=== PATIENT | male | born 1975 | race Two or more races ===

== ENCOUNTER 2022-04-06 21:35 | Emergency (ER) | payer SELFPAY ==
[~2022-04-06] VITALS: Ht 188 cm; Wt 98.5 kg
[2022-04-06] MEDS ORDERED: HYDR-4902 PO (23:44)
[2022-04-06] MEDS ORDERED: HYDROcodone-ACET 5/325MG TAB PO ONE (23:45)
[2022-04-07 00:20] VITALS: BP 146/88
== END 2022-04-07 00:35 | disposition home or self-care (01) ==
LOC: ER 21:37
DX: S42.024A Nondisplaced fracture of shaft of right clavicle, initial encounter for closed fracture (principal); S20.211A Contusion of right front wall of thorax, initial encounter; V28.09XA Other motorcycle driver injured in noncollision transport accident in nontraffic accident, initial encounter; Y93.89 Activity, other specified; Y92.89 Other specified places as the place of occurrence of the external cause; Y99.8 Other external cause status
CPT/HCPCS: 71045; 73030